=== PATIENT | male | born 1980 | race African-American/Black ===

== ENCOUNTER 2021-05-07 21:59 | Emergency (ER) | payer MEDICAID, OTHER ==
[~2021-05-07] VITALS: Ht 180.3 cm; Wt 73.0 kg
[~2021-05-07 21:59] MED LIST: HYDR-3927; ONDA4TAB51
[2021-05-07] MEDS ORDERED: ONDANSETRON HCL 4MG/2ML INJ IV STA (23:04)
[2021-05-07] MEDS ORDERED: MORPHINE SULFATE 4 MG/ML CPJ (NOT FOR IM USE) IV STA (23:04)
[2021-05-07] MEDS ORDERED: SODIUM CHLORIDE 0.9% 1,000 ML IV ONE (23:15)
[2021-05-07] MEDS ORDERED: MORPHINE SULFATE 2 MG/ML CPJ (NOT FOR IM USE) IV SCH (23:45)
[2021-05-07 23:55] LABS: BASOPHILS % 0.3 % (0.0-2.0); HEMATOCRIT. 44.4 % (42.0-52.0); LYMPHOCYTES % 12.8 % (20.0-50.0); MEAN CORPUSCULAR HEMOGLOBIN 31.2 pg (28.0-32.0); MEAN CORPUSCULAR VOLUME 92.3 fL (80.0-94.0); MEAN PLATELET VOLUME 9.1 fl (7.4-10.4); MONOCYTES % 9.8 % (2.0-8.0); NEUTROPHILS % 77.1 % (40.0-76.0); PLATELET 233 x1000/uL (130-400); RED BLOOD CELL COUNT 4.81 mill/uL (4.7-6.1); RED CELL DISTRIBUTION WIDTH 14.1 % (11.6-14.6)
[2021-05-08 00:02] LABS: CHLORIDE 102 mEq/L (98-107); CLARITY URINE CLEAR (CLEAR); COLOR URINE DARK YELLOW (YELLOW); KETONES URINE 2+ (NEGATIVE); LEUKOCYTE ESTERASE URINE TRACE (NEGATIVE); NITRITE URINE NEGATIVE (NEGATIVE); OCCULT BLOOD URINE NEGATIVE (NEGATIVE); PROTEIN URINE 3+ (NEGATIVE); SPECIFIC GRAVITY URINE 1.023 (1.005-1.030)
[2021-05-08] MEDS ORDERED: FAMO-135 MT ×3 (02:51→08:54)
[2021-05-08] MEDS ORDERED: ONDA4TAB5 MT ×3 (02:51→08:54)
[2021-05-08 04:00] VITALS: BP 111/74
[2021-05-08] MEDS ORDERED: IOHEXOL-300 100 ML BOTTLE ONE (05:34)
== END 2021-05-08 03:35 | disposition home or self-care (01) ==
LOC: ER 21:59
DX: R10.31 Right lower quadrant pain (principal); R11.2 Nausea with vomiting, unspecified; R19.7 Diarrhea, unspecified; K21.9 Gastro-esophageal reflux disease without esophagitis
CPT/HCPCS: 36415; 74177; 76705; 80053; 81003; 83690; 85025; 96361; 96374; 96375; 99285; J2270; J2405; J7030; Q9967

== ENCOUNTER 2022-08-08 06:24 | Inpatient (IN) | payer MEDICAID ==
[~2022-08-08] VITALS: Ht 297.2 cm; Wt 73.7 kg
[~2022-08-08 06:24] MED LIST changes: +FAMO-135 MT; +ONDA4TAB5 MT
[2022-08-08] MEDS ORDERED: ACETAMINOPHEN 325MG TABLET PO STA (07:17)
[2022-08-08] MEDS ORDERED: MORPHINE SULFATE 4 MG/ML CPJ (NOT FOR IM USE) IV STA (07:17)
[2022-08-08] MEDS ORDERED: ONDANSETRON HCL 4MG/2ML INJ IV STA (07:17)
[2022-08-08] MEDS ORDERED: SODIUM CHLORIDE 0.9% 1,000 ML IV ONE (07:30)
[2022-08-08] MEDS ORDERED: MORPHINE SULFATE 4 MG/ML CPJ (NOT FOR IM USE) IV ONE (08:15)
[2022-08-08] MEDS ORDERED: CEFTRIAXONE 1 G PREMIX 50 ML IV SCH (09:30)
[2022-08-08 09:37] LABS: HEMATOCRIT. 39.4 % (42.0-52.0); HEMOGLOBIN. 13.1 g/dL (14.0-18.0); MEAN CORPUSCULAR HEMOGLOBIN 31.3 pg (28.0-32.0); MEAN CORPUSCULAR VOLUME 94.4 fL (80.0-94.0); MEAN PLATELET VOLUME 8.3 fl (7.4-10.4); PLATELET 168 x1000/uL (130-400); RED BLOOD CELL COUNT 4.18 mill/uL (4.7-6.1); RED CELL DISTRIBUTION WIDTH 13.4 % (11.6-14.6)
[2022-08-08 09:43] LABS: CHLORIDE 107 mEq/L (98-107)
[2022-08-08 09:47] LABS: PROTHROMBIN TIME 10.5 sec (9.6-11.0)
[2022-08-08 09:53] LABS: ETHANOL BLOOD < 10 mg/dL
[2022-08-08 10:10] LABS: PLATELET ESTIMATE NORMAL
[2022-08-08 10:53] LABS: CLARITY URINE CLEAR (CLEAR); COLOR URINE YELLOW (YELLOW); KETONES URINE 3+ (NEGATIVE); LEUKOCYTE ESTERASE URINE NEGATIVE (NEGATIVE); NITRITE URINE NEGATIVE (NEGATIVE); OCCULT BLOOD URINE NEGATIVE (NEGATIVE); PROTEIN URINE 1+ (NEGATIVE); SPECIFIC GRAVITY URINE 1.017 (1.005-1.030)
[2022-08-08 11:15] LABS: *AMPHETAMINES SCREEN URINE NEGATIVE (NEGATIVE); *BARBITURATES SCREEN URINE NEGATIVE (NEGATIVE); *BENZODIAZEPINES SCREEN URINE NEGATIVE (NEGATIVE); *COCAINE SCREEN URINE NEGATIVE (NEGATIVE); CANNABINOID URINE SCREEN PRESUMTIVE POSITIVE (NEGATIVE); METHADONE URINE SCREEN NEGATIVE (NEGATIVE); OPIATES URINE SCREEN PRESUMTIVE POSITIVE (NEGATIVE); PHENCYCLIDINE URINE SCREEN NEGATIVE (NEGATIVE)
[2022-08-08] MEDS ORDERED: FENTANYL CITRATE/PF 50MCG/ML 2ML VIAL ONE (12:47)
[2022-08-08] MEDS ORDERED: ONDANSETRON HCL 4MG/2ML INJ ONE ×2 (12:47→14:39)
[2022-08-08] MEDS ORDERED: DEXAMETHASONE 4MG/ML 1ML VIAL ONE ×2 (12:47→14:41)
[2022-08-08] MEDS ORDERED: MIDAZOLAM HCL 2 MG/2 ML VIAL ONE (12:48)
[2022-08-08] MEDS ORDERED: LIDOCAINE HCL 1% 10 MG/ML 10ML VIAL ONE (12:52)
[2022-08-08] MEDS ORDERED: CLONIDINE 0.1MG TABLET PO PRN (14:45)
[2022-08-08] MEDS ORDERED: HYDROCODONE/ACETAMINOPHEN 5/325MG TABLET PO PRN (14:45)
[2022-08-08] MEDS ORDERED: DOCUSATE SODIUM 100MG CAPSULE PO PRN (14:45)
[2022-08-08] MEDS ORDERED: LORAZEPAM 0.5MG TABLET PO PRN (14:45)
[2022-08-08] MEDS ORDERED: MORPHINE SULFATE 2 MG/ML CPJ (NOT FOR IM USE) IV PRN (14:45)
[2022-08-08] MEDS ORDERED: IPRATROPIUM/ALBUTEROL 0.5-3(2.5)MG/3ML NEB HHN PRN (14:45)
[2022-08-08] MEDS ORDERED: ACETAMINOPHEN 325MG TABLET PO PRN ×2 (14:45)
[2022-08-08] MEDS ORDERED: ONDANSETRON HCL 4MG/2ML INJ IV PRN (14:45)
[2022-08-08] MEDS ORDERED: IPRATROPIUM BROMIDE (0.02%) 0.5MG/2.5ML NEB HHN PRN (15:00)
[2022-08-08] MEDS ORDERED: ALBUTEROL (0.083%) 2.5MG/3ML NEB HHN PRN (15:00)
[2022-08-08] MEDS ORDERED: NALOXONE HCL 0.4MG/ML VIAL IV PRN (15:00)
[2022-08-08 16:28] VITALS: BP 126/54
[2022-08-08 17:12] VITALS: BP 122/52
== END 2022-08-08 17:30 | disposition home or self-care (01) | DRG 501 ==
LOC: ER 06:24 → EDBEDREQTM 11:03 → EDBEDREQ 11:03 → MICUSO 11:18 → 6EST 12:23
PROVIDERS: ADMIT Internal Medicine; ATTEND Internal Medicine
DX: N44.00 Torsion of testis, unspecified (principal); D72.825 Bandemia; N50.812 Left testicular pain; Z20.822 Contact with and (suspected) exposure to COVID-19; D72.829 Elevated white blood cell count, unspecified
CPT/HCPCS: 36415; 74176; 76870; 80053; 80305; 80320; 81003; 85025; 87426; 93976; 99291; C9803; J0696; J1100; J2250; J2270; J2405; J3010; J3490; J7030; G0480